=== PATIENT | male | born 1980 | race Two or more races ===

== ENCOUNTER 2020-06-10 17:52 | Inpatient (IN) | payer MEDICARE, MEDICAID ==
[~2020-06-10] VITALS: Ht 162.6 cm; Wt 82.0 kg
[2020-06-10] MEDS ORDERED: ACETAMINOPHEN 325 MG TAB PO ONE (18:45)
[2020-06-10] MEDS ORDERED: VANCOMYCIN 1GM/250ML 250 ML IV STA (18:45)
[2020-06-10] MEDS ORDERED: PIPERACILLIN-TAZO 4.5GM 100 ML IV ONE ×2 (19:45→20:00)
[2020-06-10 19:53] LABS: Basophils # (auto) 0 10 ^3/uL (0-0.2); Basophils % (auto) 1.2 % (0.0-2.0); Eosinophils # (auto) 0.1 10 ^3/uL (0-0.8); Eosinophils % (auto) 3.4 % (0.0-7.0); Hematocrit 29.6 % (41.0-53.0); Hemoglobin 10.1 g/dL (13.5-17.5); Lymphocytes # (auto) 0.4 10 ^3/uL (0.4-5.4); Lymphocytes % (auto) 12.3 % (10.0-50.0); Mean Corpuscular Hemoglobin 30.3 pg (28.0-32.0); Mean Corpuscular Hgb Conc. 34.1 g/dL (32.0-36.0); Mean Corpuscular Volume 88.9 fL (80.0-100.0); Monocytes # (auto) 0.1 10 ^3/uL (0-1.3); Monocytes % (auto) 3.9 % (0.0-12.0); Neutrophils # (auto) 2.5 10 ^3/uL (1.6-8.6); Neutrophils % (auto) 79.2 % (37.0-80.0); Nucleated Red Blood Cells % 0.1 %; Platelet Count (auto) 124 10^3/uL (140-450); Red Blood Cells 3.33 10^6/uL (4.5-5.90); Red Cell Distribution Width 15.8 % (11.8-14.3); White Blood Cell 3.2 10^3/uL (4.4-10.8)
[2020-06-10 20:12] LABS: Calcium 8.1 mg/dL (8.5-10.1); Magnesium 2.3 mg/dL (1.6-2.6); Potassium 4.5 mmol/L (3.5-5.1)
[2020-06-10 20:14] LABS: INR 1.13 (0.9-1.15); Partial Thromboplastin Time 28.6 sec (23.0-31.2)
[2020-06-10 20:21] LABS: BUN/Creatinine Ratio 3.6; CRP High Sensitivity 8.07 mg/dL (< 0.3); Total Protein 7.4 g/dL (6.4-8.2)
[2020-06-11] MEDS ORDERED: ACETAMINOPHEN 325 MG TAB PO PRN (02:15)
[2020-06-11] MEDS ORDERED: VANCOMYCIN PER PHARMACY 0 MG IV SCH (02:15)
[2020-06-11] MEDS ORDERED: DOCUSATE SOD 100 MG CAP PO PRN (02:15)
[2020-06-11] MEDS ORDERED: MORPHINE SULFATE 4 MG/ML SYR/VIAL IV PRN (02:15)
[2020-06-11] MEDS ORDERED: MORPHINE SULF INJ 2 MG/ML SYRINGE 1ML IV PRN (02:15)
[2020-06-11] MEDS ORDERED: NITROGLYCERIN 0.4 MG SL TAB SL PRN (02:15)
[2020-06-11] MEDS ORDERED: ONDANSETRON HCL 4 MG/2 ML VIAL IV PRN (02:15)
[2020-06-11 02:53] VITALS: BP 137/53
[2020-06-11] MEDS: SODIUM CHLOR 0.9% PF (SALINE LOCK) 10ML VIAL/SYR IV SCH ×3 (06:13→21:34)
[2020-06-11] MEDS: guaiFENesin 200 MG/10 ML UD PO PRN ×2 (06:52→18:12)
[2020-06-11] MEDS: ALBUTEROL SULF HFA 90MCG INH 200DOSE IN PRN ×2 (07:37→18:53)
[2020-06-11] MEDS: BUDESONIDE (INHALATION) 180 MCG IH IN SCH ×2 (07:37→18:53)
[2020-06-11 08:00] VITALS: BP 148/74
[2020-06-11 08:57] VITALS: BP 148/74
[2020-06-11] MEDS ORDERED: DOCU-94 PO (09:24)
[2020-06-11] MEDS ORDERED: SEVE800T8 PO (09:24)
[2020-06-11] MEDS ORDERED: AMLO-489 PO (09:24)
[2020-06-11] MEDS ORDERED: CHOL20007 PO (09:24)
[2020-06-11] MEDS ORDERED: FURO1TAB33 PO (09:24)
[2020-06-11] MEDS ORDERED: B-CO1TAB33 PO (09:24)
[2020-06-11] MEDS ORDERED: LABE200T6 PO (09:24)
[2020-06-11] MEDS ORDERED: ATOR40TA52 PO (09:24)
[2020-06-11] MEDS ORDERED: INSUINJ49 SC (09:24)
[2020-06-11] MEDS ORDERED: HEPARIN SODIUM (PORCINE) 5000 UNITS/ML 1ML VIAL SC SCH (10:00)
[2020-06-11] MEDS ORDERED: ENOXAPARIN SOD 60 MG/0.6 ML SYRINGE SC ONE (11:00)
[2020-06-11] MEDS ORDERED: REMDESIVIR PER PHARMACY 0 ML IV SCH (11:00)
[2020-06-11] MEDS: ZINC SULFATE 220mg CAP or TAB PO SCH (11:21)
[2020-06-11] MEDS: DexAMETHasone SOD PHOS 10MG/1ML VIAL INJ IV SCH (11:21)
[2020-06-11] MEDS: FAMOTIDINE (10MG/ML) 2ML VL IV SCH (11:21)
[2020-06-11] MEDS: MULTIPLE VITAMIN TAB PO SCH (11:21)
[2020-06-11] MEDS: DOXYCYCLINE 100MG/250ML 250 ML IV SCH ×2 (11:21→21:34)
[2020-06-11] MEDS: CHOLECALCIFEROL (VITD3) 2,000 UNIT CAP/TAB PO SCH (11:22)
[2020-06-11 12:00] VITALS: BP 131/65
[2020-06-11] MEDS: ASCORBIC ACID 1,000 MG TAB PO SCH (14:14)
[2020-06-11] MEDS ORDERED: REMDESIVIR 200 MG in NS 210ml LOADING DOSE ADULT IV ONE (15:00)
[2020-06-11 16:00] VITALS: BP 132/63
[2020-06-11 22:00] VITALS: BP 149/81
[2020-06-12 05:00] VITALS: BP 150/76
[2020-06-12 06:14] LABS: Basophils # (auto) 0 10 ^3/uL (0-0.2); Basophils % (auto) 0.7 % (0.0-2.0); Eosinophils # (auto) 0 10 ^3/uL (0-0.8); Hematocrit 29.9 % (41.0-53.0); Hemoglobin 10.4 g/dL (13.5-17.5); Lymphocytes # (auto) 0.4 10 ^3/uL (0.4-5.4); Mean Corpuscular Hemoglobin 30.7 pg (28.0-32.0); Mean Corpuscular Hgb Conc. 34.7 g/dL (32.0-36.0); Mean Corpuscular Volume 88.5 fL (80.0-100.0); Monocytes # (auto) 0.2 10 ^3/uL (0-1.3); Monocytes % (auto) 5.9 % (0.0-12.0); Neutrophils # (auto) 3.3 10 ^3/uL (1.6-8.6); Neutrophils % (auto) 82.4 % (37.0-80.0); Nucleated Red Blood Cells % 0.1 %; Platelet Count (auto) 131 10^3/uL (140-450); Red Blood Cells 3.38 10^6/uL (4.5-5.90); Red Cell Distribution Width 15.7 % (11.8-14.3); White Blood Cell 4.1 10^3/uL (4.4-10.8)
[2020-06-12 06:32] LABS: Potassium 5.2 mmol/L (3.5-5.1)
[2020-06-12 06:42] LABS: Albumin 2.8 g/dL (3.4-5.0); BUN/Creatinine Ratio 5.1; Calcium 8.4 mg/dL (8.5-10.1); Total Protein 7.2 g/dL (6.4-8.2)
[2020-06-12] MEDS: SODIUM CHLOR 0.9% PF (SALINE LOCK) 10ML VIAL/SYR IV SCH ×3 (06:44→22:08)
[2020-06-12] MEDS: LEVOTHYROXINE SODIUM 50 MCG TAB PO SCH (06:44)
[2020-06-12] MEDS: guaiFENesin 200 MG/10 ML UD PO PRN ×2 (07:13→22:10)
[2020-06-12 08:00] VITALS: BP 152/76
[2020-06-12] MEDS: DexAMETHasone SOD PHOS 10MG/1ML VIAL INJ IV SCH (09:17)
[2020-06-12] MEDS: DOXYCYCLINE 100MG/250ML 250 ML IV SCH ×2 (09:17→22:10)
[2020-06-12] MEDS: FAMOTIDINE (10MG/ML) 2ML VL IV SCH (09:17)
[2020-06-12] MEDS: ZINC SULFATE 220mg CAP or TAB PO SCH (09:18)
[2020-06-12] MEDS: ASCORBIC ACID 1,000 MG TAB PO SCH (09:18)
[2020-06-12] MEDS: MULTIPLE VITAMIN TAB PO SCH (09:18)
[2020-06-12] MEDS: CHOLECALCIFEROL (VITD3) 2,000 UNIT CAP/TAB PO SCH (09:18)
[2020-06-12] MEDS: ENOXAPARIN SOD 60 MG/0.6 ML SYRINGE SC SCH (09:19)
[2020-06-12 12:00] VITALS: BP 144/66
[2020-06-12] MEDS: REMDESIVIR 100mg 100 MG in SODIUM CHL 0.9% 230 ML IV SCH (15:03)
[2020-06-12 16:00] VITALS: BP 139/68
[2020-06-12] MEDS: BUDESONIDE (INHALATION) 180 MCG IH IN SCH (21:47)
[2020-06-12] MEDS: ALBUTEROL SULF HFA 90MCG INH 200DOSE IN PRN (21:47)
[2020-06-12 22:00] VITALS: BP 149/72
[2020-06-13 05:00] VITALS: BP 141/60
[2020-06-13] MEDS: SODIUM CHLOR 0.9% PF (SALINE LOCK) 10ML VIAL/SYR IV SCH ×3 (06:26→21:36)
[2020-06-13] MEDS: LEVOTHYROXINE SODIUM 50 MCG TAB PO SCH (06:26)
[2020-06-13] MEDS ORDERED: SODIUM CHL 0.9% 1000 ML BAG XX ONE (07:00)
[2020-06-13] MEDS: BUDESONIDE (INHALATION) 180 MCG IH IN SCH ×2 (07:26→21:06)
[2020-06-13] MEDS: ALBUTEROL SULF HFA 90MCG INH 200DOSE IN PRN ×2 (07:26→21:06)
[2020-06-13 08:00] VITALS: BP 147/65
[2020-06-13 08:29] LABS: Albumin 2.8 g/dL (3.4-5.0); BUN/Creatinine Ratio 6.4; Bilirubin, Total 0.9 mg/dL (0.2-1.0); Calcium 8.3 mg/dL (8.5-10.1); Total Protein 7.3 g/dL (6.4-8.2)
[2020-06-13 08:39] LABS: Potassium 5.6 mmol/L (3.5-5.1)
[2020-06-13] MEDS ORDERED: LORA1TAB23 (09:31)
[2020-06-13] MEDS: FAMOTIDINE (10MG/ML) 2ML VL IV SCH (10:00)
[2020-06-13] MEDS: DexAMETHasone SOD PHOS 10MG/1ML VIAL INJ IV SCH (10:00)
[2020-06-13] MEDS: ENOXAPARIN SOD 60 MG/0.6 ML SYRINGE SC SCH (10:00)
[2020-06-13] MEDS ORDERED: LORazepam 0.5 MG TAB PO PRN (10:00)
[2020-06-13] MEDS: DOXYCYCLINE 100MG/250ML 250 ML IV SCH ×2 (10:00→21:36)
[2020-06-13] MEDS: LORazepam 0.5 MG TAB PO PRN (10:20)
[2020-06-13 12:00] VITALS: BP 148/76
[2020-06-13] MEDS: MULTIPLE VITAMIN TAB PO SCH (14:36)
[2020-06-13] MEDS: CHOLECALCIFEROL (VITD3) 2,000 UNIT CAP/TAB PO SCH (14:36)
[2020-06-13] MEDS: ZINC SULFATE 220mg CAP or TAB PO SCH (14:37)
[2020-06-13] MEDS: ASCORBIC ACID 1,000 MG TAB PO SCH (14:37)
[2020-06-13] MEDS: REMDESIVIR 100mg 100 MG in SODIUM CHL 0.9% 230 ML IV SCH (15:33)
[2020-06-13 16:00] VITALS: BP 146/71
[2020-06-13] MEDS: HYDROcodone-ACET 5/325MG TAB PO PRN (21:35)
[2020-06-13 22:00] VITALS: BP 149/61
[2020-06-13 23:00] VITALS: BP 149/61
[2020-06-14] MEDS: guaiFENesin 200 MG/10 ML UD PO PRN ×2 (02:34→21:35)
[2020-06-14 03:21] VITALS: BP 149/61
[2020-06-14 05:28] VITALS: BP 147/72
[2020-06-14] MEDS: SODIUM CHLOR 0.9% PF (SALINE LOCK) 10ML VIAL/SYR IV SCH ×3 (05:53→21:35)
[2020-06-14 06:29] LABS: Albumin 2.8 g/dL (3.4-5.0); Calcium 7.9 mg/dL (8.5-10.1); Potassium 4.7 mmol/L (3.5-5.1)
[2020-06-14 06:32] LABS: BUN/Creatinine Ratio 6.9; Total Protein 7.3 g/dL (6.4-8.2)
[2020-06-14] MEDS: ALBUTEROL SULF HFA 90MCG INH 200DOSE IN PRN ×2 (06:35→20:40)
[2020-06-14] MEDS: BUDESONIDE (INHALATION) 180 MCG IH IN SCH ×2 (06:35→20:41)
[2020-06-14] MEDS: LEVOTHYROXINE SODIUM 50 MCG TAB PO SCH (06:51)
[2020-06-14 09:00] VITALS: BP 146/75
[2020-06-14] MEDS: HYDROcodone-ACET 5/325MG TAB PO PRN (10:50)
[2020-06-14] MEDS: ASCORBIC ACID 1,000 MG TAB PO SCH (10:50)
[2020-06-14] MEDS: CHOLECALCIFEROL (VITD3) 2,000 UNIT CAP/TAB PO SCH (10:50)
[2020-06-14] MEDS: DexAMETHasone SOD PHOS 10MG/1ML VIAL INJ IV SCH (10:50)
[2020-06-14] MEDS: MULTIPLE VITAMIN TAB PO SCH (10:51)
[2020-06-14] MEDS: ZINC SULFATE 220mg CAP or TAB PO SCH (10:51)
[2020-06-14] MEDS: ENOXAPARIN SOD 60 MG/0.6 ML SYRINGE SC SCH (10:51)
[2020-06-14] MEDS: DOXYCYCLINE 100MG/250ML 250 ML IV SCH ×2 (10:52→21:35)
[2020-06-14] MEDS: FAMOTIDINE (10MG/ML) 2ML VL IV SCH (10:52)
[2020-06-14 13:13] VITALS: BP 153/70
[2020-06-14] MEDS: REMDESIVIR 100mg 100 MG in SODIUM CHL 0.9% 230 ML IV SCH (16:43)
[2020-06-14 16:47] VITALS: BP 147/70
[2020-06-14 22:00] VITALS: BP 141/68
[2020-06-15 05:00] VITALS: BP 152/72
[2020-06-15] MEDS: SODIUM CHLOR 0.9% PF (SALINE LOCK) 10ML VIAL/SYR IV SCH ×3 (05:11→21:53)
[2020-06-15] MEDS: LEVOTHYROXINE SODIUM 50 MCG TAB PO SCH (06:30)
[2020-06-15] MEDS ORDERED: SODIUM CHL 0.9% 1000 ML BAG XX ONE (07:00)
[2020-06-15 07:14] LABS: Basophils # (auto) 0 10 ^3/uL (0-0.2); Basophils % (auto) 0.2 % (0.0-2.0); Eosinophils # (auto) 0 10 ^3/uL (0-0.8); Eosinophils % (auto) 0.1 % (0.0-7.0); Hemoglobin 10.6 g/dL (13.5-17.5); Lymphocytes # (auto) 0.5 10 ^3/uL (0.4-5.4); Lymphocytes % (auto) 7.4 % (10.0-50.0); Mean Corpuscular Hemoglobin 30.7 pg (28.0-32.0); Mean Corpuscular Hgb Conc. 35.2 g/dL (32.0-36.0); Mean Corpuscular Volume 87.1 fL (80.0-100.0); Monocytes # (auto) 0.4 10 ^3/uL (0-1.3); Monocytes % (auto) 6.1 % (0.0-12.0); Neutrophils # (auto) 5.5 10 ^3/uL (1.6-8.6); Neutrophils % (auto) 86.2 % (37.0-80.0); Nucleated Red Blood Cells % 0.1 %; Platelet Count (auto) 158 10^3/uL (140-450); Red Blood Cells 3.45 10^6/uL (4.5-5.90); Red Cell Distribution Width 15.9 % (11.8-14.3); White Blood Cell 6.4 10^3/uL (4.4-10.8)
[2020-06-15] MEDS: BUDESONIDE (INHALATION) 180 MCG IH IN SCH ×2 (07:36→19:00)
[2020-06-15 07:47] LABS: Albumin 2.9 g/dL (3.4-5.0); BUN/Creatinine Ratio 8.3; CRP High Sensitivity 13.2 mg/dL (< 0.3); Calcium 8.7 mg/dL (8.5-10.1); Total Protein 7.4 g/dL (6.4-8.2)
[2020-06-15 07:54] LABS: Potassium 5.6 mmol/L (3.5-5.1)
[2020-06-15 09:00] VITALS: BP 160/71
[2020-06-15] MEDS: LORazepam 0.5 MG TAB PO PRN (12:12)
[2020-06-15 13:00] VITALS: BP 160/76
[2020-06-15] MEDS: DexAMETHasone SOD PHOS 10MG/1ML VIAL INJ IV SCH (16:33)
[2020-06-15] MEDS: DOXYCYCLINE 100MG/250ML 250 ML IV SCH ×2 (16:33→21:54)
[2020-06-15] MEDS: ZINC SULFATE 220mg CAP or TAB PO SCH (16:34)
[2020-06-15] MEDS: MULTIPLE VITAMIN TAB PO SCH (16:34)
[2020-06-15] MEDS: ENOXAPARIN SOD 60 MG/0.6 ML SYRINGE SC SCH (16:35)
[2020-06-15] MEDS: ASCORBIC ACID 1,000 MG TAB PO SCH (16:35)
[2020-06-15] MEDS: CHOLECALCIFEROL (VITD3) 2,000 UNIT CAP/TAB PO SCH (16:35)
[2020-06-15] MEDS: REMDESIVIR 100mg 100 MG in SODIUM CHL 0.9% 230 ML IV SCH (16:36)
[2020-06-15 17:00] VITALS: BP 160/75
[2020-06-15] MEDS: ALBUTEROL SULF HFA 90MCG INH 200DOSE IN PRN (19:00)
[2020-06-15] MEDS ORDERED: DEXTROSE (50%) 50ML SYRG IV PRN (20:45)
[2020-06-15] MEDS ORDERED: EPOETIN ALFA-EPBX 4,000 UNIT/ML VIAL SC ONE (21:00)
[2020-06-15] MEDS: InsuLIN REG 1unit/0.01ml Soln (100units/ml) SC SCH (21:57)
[2020-06-15 22:00] VITALS: BP 156/73
[2020-06-15] MEDS: ACCU-CHEK COMFORT CURVE STRIP VI SCH (22:10)
[2020-06-16 05:00] VITALS: BP 150/79
[2020-06-16] MEDS: SODIUM CHLOR 0.9% PF (SALINE LOCK) 10ML VIAL/SYR IV SCH (05:59)
[2020-06-16] MEDS: ACCU-CHEK COMFORT CURVE STRIP VI SCH ×2 (06:28→11:31)
[2020-06-16] MEDS: LEVOTHYROXINE SODIUM 50 MCG TAB PO SCH (06:28)
[2020-06-16] MEDS: InsuLIN REG 1unit/0.01ml Soln (100units/ml) SC SCH ×2 (06:32→11:30)
[2020-06-16 08:38] VITALS: BP 163/71
[2020-06-16] MEDS: ZINC SULFATE 220mg CAP or TAB PO SCH (09:13)
[2020-06-16] MEDS: MULTIPLE VITAMIN TAB PO SCH (09:13)
[2020-06-16] MEDS: ASCORBIC ACID 1,000 MG TAB PO SCH (09:14)
[2020-06-16] MEDS: CHOLECALCIFEROL (VITD3) 2,000 UNIT CAP/TAB PO SCH (09:14)
[2020-06-16] MEDS: ENOXAPARIN SOD 60 MG/0.6 ML SYRINGE SC SCH (09:15)
[2020-06-16] MEDS ORDERED: FAMOTIDINE (10MG/ML) 2ML VL IV SCH (10:00)
[2020-06-16] MEDS: DexAMETHasone SOD PHOS 10MG/1ML VIAL INJ IV SCH (10:42)
[2020-06-16 13:00] VITALS: BP 155/70
[2020-06-16 17:00] VITALS: BP 150/70
== END 2020-06-16 17:05 | disposition home or self-care (01) | DRG 177 ==
LOC: EDBD 17:52 → ER 17:52 → TELE 06-11 02:03 → TELE-EAST 06-11 08:02
PROVIDERS: ADMIT Nurse Practitioner Family; ATTEND Internal Medicine
PROC: XW033E5 Introduction of Remdesivir Anti-infective into Peripheral Vein, Percutaneous Approach, New Technology Group 5 (ICD-10-PCS; principal; 2020-06-11)
PROC: 5A1D70Z Performance of Urinary Filtration, Intermittent, Less than 6 Hours Per Day (ICD-10-PCS; 2020-06-13)
PROC: 5A1D70Z Performance of Urinary Filtration, Intermittent, Less than 6 Hours Per Day (ICD-10-PCS; 2020-06-15)
DX: U07.1 COVID-19 (principal); J12.82 Pneumonia due to coronavirus disease 2019; J96.01 Acute respiratory failure with hypoxia; N18.6 End stage renal disease; D61.818 Other pancytopenia; J98.11 Atelectasis; I12.0 Hypertensive chronic kidney disease with stage 5 chronic kidney disease or end stage renal disease; E11.22 Type 2 diabetes mellitus with diabetic chronic kidney disease; E11.51 Type 2 diabetes mellitus with diabetic peripheral angiopathy without gangrene; D63.1 Anemia in chronic kidney disease; E03.9 Hypothyroidism, unspecified; E87.5 Hyperkalemia; Z99.2 Dependence on renal dialysis; Z90.49 Acquired absence of other specified parts of digestive tract; Z79.899 Other long term (current) drug therapy
CPT/HCPCS: 36415; 71045; 80053; 80202; 82728; 82962; 83036; 83605; 83615; 83735; 83880; 84443; 84484; 85025; 85379; 85610; 85730; 86141; 87040; 87081; 87426; 90935; 93005; 94640; 96365; 96366; 96367; G0378; J1100; J1642; J1815; J2543; J3490

== ENCOUNTER → 2021-09-15 | Outpatient (CLI) | payer MEDICARE, MEDICAID ==
[~2021-09-15] MED LIST: AMLO-489 PO; ATOR40TA52 PO; B-CO1TAB33 PO; CHOL20007 PO; DOCU-94 PO; FURO1TAB33 PO; INSUINJ49 SC; LABE200T6 PO; LORA1TAB23; SEVE800T8 PO
== END | disposition home or self-care (01) ==
LOC: Rad HDHVI 12:52
PROVIDERS: ATTEND Internal Medicine Cardiovascular Disease
DX: I31.3 Pericardial effusion (noninflammatory) (principal); I10 Essential (primary) hypertension
CPT/HCPCS: 93306

== ENCOUNTER → 2021-09-25 | Outpatient (CLI) | payer MEDICARE, MEDICAID | END | disposition home or self-care (01) | LOC: Rad HDHVI 08:06 | PROVIDERS: ATTEND Internal Medicine Cardiovascular Disease | DX: I70.213 Atherosclerosis of native arteries of extremities with intermittent claudication, bilateral legs (principal); I82.409 Acute embolism and thrombosis of unspecified deep veins of unspecified lower extremity | CPT/HCPCS: 93925 ==

== ENCOUNTER → 2021-09-27 | Outpatient (CLI) | payer MEDICARE, MEDICAID ==
[~2021-09-27] VITALS: Ht 165.1 cm; Wt 78.5 kg
[~2021-09-27] MED LIST changes: +ADENOSINE 66 MG in GIVE UN-DILUTED 0 ML IV ONE; +ADENOSINE 90 MG/30 ML INJ IV ONE; +cloNIDine HCL 0.1 MG TAB ONE
== END | disposition home or self-care (01) ==
LOC: Rad HDHVI 08:54
PROVIDERS: ATTEND Internal Medicine Cardiovascular Disease
DX: N18.6 End stage renal disease (principal); R07.9 Chest pain, unspecified; E78.5 Hyperlipidemia, unspecified; I10 Essential (primary) hypertension; E11.9 Type 2 diabetes mellitus without complications
CPT/HCPCS: 78452; 93005; 96374; 96375; A9500; J0153

== ENCOUNTER → 2022-09-12 | Outpatient (CLI) | payer MEDICARE, MEDICAID ==
[~2022-09-12] MED LIST changes: -ADENOSINE 66 MG in GIVE UN-DILUTED 0 ML IV ONE; -ADENOSINE 90 MG/30 ML INJ IV ONE; -AMLO-489 PO; +AMLO1TAB22 PO; +LORA-1123; -LORA1TAB23; -cloNIDine HCL 0.1 MG TAB ONE
== END | disposition home or self-care (01) ==
LOC: Rad HDHVI 09:52
PROVIDERS: ATTEND Internal Medicine Cardiovascular Disease
DX: I08.1 Rheumatic disorders of both mitral and tricuspid valves (principal); R06.02 Shortness of breath; E78.5 Hyperlipidemia, unspecified
CPT/HCPCS: 93306

== ENCOUNTER → 2024-01-15 | Outpatient (CLI) | payer MEDICARE, MEDICAID ==
[~2024-01-15] MED LIST changes: +LABE200T10 PO; -LABE200T6 PO
== END | disposition home or self-care (01) ==
LOC: Rad HDHVI 09:55
PROVIDERS: ATTEND Internal Medicine Cardiovascular Disease
DX: I11.0 Hypertensive heart disease with heart failure (principal); I50.43 Acute on chronic combined systolic (congestive) and diastolic (congestive) heart failure
CPT/HCPCS: 93306

== ENCOUNTER 2024-10-02 08:11 | Outpatient (CLI) | payer MEDICARE, MEDICAID ==
[~2024-10-02] VITALS: Ht 165.1 cm; Wt 83.0 kg
[2024-10-02] MEDS ORDERED: ADENOSINE 70 MG in GIVE UN-DILUTED 0 ML IV ONE (09:00)
[2024-10-02] MEDS ORDERED: ADENOSINE 90 MG/30 ML INJ IV ONE (10:05)
== END 2024-10-02 17:00 | disposition home or self-care (01) ==
LOC: Rad HDHVI 08:11
PROVIDERS: ATTEND Internal Medicine Cardiovascular Disease
DX: I49.1 Atrial premature depolarization (principal); I49.3 Ventricular premature depolarization; R07.89 Other chest pain; I11.0 Hypertensive heart disease with heart failure; I50.33 Acute on chronic diastolic (congestive) heart failure; E78.00 Pure hypercholesterolemia, unspecified; Z94.0 Kidney transplant status; Z79.82 Long term (current) use of aspirin
CPT/HCPCS: 78452; 93017; A9500; J0153

== ENCOUNTER → 2024-10-14 | Outpatient (CLI) | payer MEDICARE, MEDICAID | END | disposition home or self-care (01) | LOC: Rad HDHVI 15:48 | PROVIDERS: ATTEND Internal Medicine Cardiovascular Disease | DX: I65.21 Occlusion and stenosis of right carotid artery (principal); I10 Essential (primary) hypertension | CPT/HCPCS: 93880 ==